=== PATIENT | male | born 1955 | race Caucasian/White ===

== ENCOUNTER 2020-04-08 14:58 | Inpatient (IN) | payer MEDICARE ==
[~2020-04-08] VITALS: Ht 170.2 cm; Wt 95.3 kg
[2020-04-08] MEDS ORDERED: RISP1TAB27 PO (15:16)
[2020-04-08] MEDS ORDERED: HYDR-501 PO (15:16)
[2020-04-08] MEDS ORDERED: INSU100I26 SQ (15:16)
[2020-04-08] MEDS ORDERED: SEMA1PEN SQ (15:16)
[2020-04-08] MEDS ORDERED: TRAZ-182 PO (15:16)
[2020-04-08] MEDS ORDERED: LISI2.5T2 PO (15:16)
[2020-04-08] MEDS ORDERED: GLIP10TA21 PO (15:16)
--- NOTE | 2020-04-08 15:17 | NUR ---
med recon was prepared from pt own med bottles and pt information provided.
[2020-04-08] MEDS ORDERED: MAG HYDROX/AL HYDROX/SIMETH 30 ML LIQUID UDC PO PRN (16:00)
[2020-04-08] MEDS ORDERED: MAGNESIUM HYDROXIDE 30 ML LIQUID UDC PO PRN (16:00)
[2020-04-08] MEDS ORDERED: BLOOD SUGAR DIAGNOSTIC 1 EACH STRIP VI ONE (16:00)
[2020-04-08] MEDS ORDERED: ACETAMINOPHEN 325 MG TABLET PO PRN (16:00)
--- NOTE | 2020-04-08 16:11 | NUR ---
Patient was escorted to MHU by security specialist & ANIVAL Rubin. Patient ate whole sandwich with water with good appetite before leaving ER.
[2020-04-08] MEDS ORDERED: DEXTROSE 50% 50 ML DISP.SYRIN IV PRN (16:15)
[2020-04-08 16:30] VITALS: BP 118/64
[2020-04-08] MEDS: BLOOD SUGAR DIAGNOSTIC 1 EACH STRIP VI SCH ×2 (16:30→20:55)
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
[2020-04-08] MEDS: INSULIN REGULAR, HUMAN 300 UNITS/3 ML VIAL SQ PRN (20:56)
[2020-04-08] MEDS: INSULIN GLARGINE,HUM 300 UNITS/3 ML CARTRIDGE SQ SCH (20:57)
[2020-04-08 21:31] VITALS: BP 121/66
--- NOTE | 2020-04-09 06:04 | NUR ---
Patient slept a total of 7.0 hours.
[2020-04-09] MEDS: BLOOD SUGAR DIAGNOSTIC 1 EACH STRIP VI SCH ×4 (06:35→20:14)
[2020-04-09 07:30] VITALS: BP 109/76
[2020-04-09 07:39] LABS: *BILIRUBIN,URIN NEGATIVE (NEGATIVE); *BLOOD, URINE NEGATIVE (NEGATIVE); *CLARITY,URINE CLEAR (CLEAR); *COLOR,URINE YELLOW (YELLOW); *KETONES,URINE NEGATIVE (NEGATIVE); *UROBILINOGEN,URINE 0.2 E.U./dl (NORMAL); LEUKOCYTE ESTERASE ,URINE NEGATIVE (NEGATIVE); NITRITE, URINE NEGATIVE (NEGATIVE); UGLUCOSE NEGATIVE (NEGATIVE)
[2020-04-09] MEDS: INSULIN GLARGINE,HUM 300 UNITS/3 ML CARTRIDGE SQ SCH ×2 (08:16→20:23)
[2020-04-09] MEDS: INSULIN REGULAR, HUMAN 300 UNIT/3 ML VIAL SQ PRN ×3 (08:18→17:45)
[2020-04-09] MEDS: HALOPERIDOL 1 MG TABLET PO SCH ×3 (08:24→17:35)
[2020-04-09] MEDS: FLUOXETINE HCL 20 MG CAPSULE PO SCH (08:25)
[2020-04-09] MEDS: LISINOPRIL 5 MG TABLET PO SCH (08:30)
[2020-04-09] MEDS: glipiZIDE XL 5 MG TABCR PO SCH (08:31)
[2020-04-09] MEDS ORDERED: GLIPIZIDE 10 MG PO SCH (09:00)
--- NOTE | 2020-04-09 11:42 | NUR ---
BREEZY Initial Discharge Note: Patient is currently homeless and will be needing independent living placement. Patient is agreeable to paying for an Independent Living. Patient does not have any supportive contacts and does not want his siblings to be notified of his hospitalization. BREEZY will continue to work with patient and MD to ensure a safe and proper discharge plan.
--- NOTE | 2020-04-09 11:51 | NUR ---
Social Work Firearms Report (DOJ): Denture Contour Wire Specialist completed and submitted a [employer] firearms report for 5150 danger to self certification. A copy of report has been placed in patient chart.
[2020-04-09 16:00] VITALS: BP 107/86
--- NOTE | 2020-04-09 17:00 | NUR ---
Gps/Process Improvement Manager- Kept asking for food, , something to eat per pt. Reviwed about his Diabetes, claimed he cant help it he's still hungry, might benefit from Diabetic Educ. Patient complaint he had couple of dirrhea today, denies any stomach cramps, instructed if ever have diarrhrea again, not to flush toilet, let staff know .
[2020-04-09] MEDS: LOPERAMIDE HCL 2 MG CAPSULE PO PRN ×2 (17:35→23:32)
[2020-04-09 20:00] VITALS: BP 119/77
--- NOTE | 2020-04-09 20:00 | NUR ---
RECEIVED PATIENT IN THE DAY ROOM WATCHING TV. HE IS NOTED A/O X 3, HE IS ABLE TO VERBALIZED FEELINGS. CALM AND PLEASANT UPON APPROACHED. HE IS NOTED HYPERVERBAL, AND ATTENTION SEEKER. HE DENIES SI/HI/VH/AH. HE IS ABLE TO CFS. V/S STABLE AT THIS TIME. PATIENT IS REASSURED FOR HER SAFETY. SAFETY AND FALL PRECAUTION IN PLACE. WILL CONTINUE TO MONITOR.
[2020-04-09] MEDS: INSULIN REGULAR, HUMAN 300 UNITS/3 ML VIAL SQ PRN (20:22)
[2020-04-09] MEDS ORDERED: TRAZODONE 50 MG TABLET PO SCH (21:00)
[2020-04-09] MEDS: TEMAZEPAM 7.5 MG CAPSULE PO PRN (23:32)
[2020-04-10] MEDS: BLOOD SUGAR DIAGNOSTIC 1 EACH STRIP VI SCH ×4 (06:39→20:29)
[2020-04-10 07:30] VITALS: BP 94/50
[2020-04-10] MEDS: INSULIN GLARGINE,HUM 300 UNITS/3 ML CARTRIDGE SQ SCH ×2 (08:12→20:46)
[2020-04-10] MEDS: glipiZIDE XL 5 MG TABCR PO SCH (08:13)
[2020-04-10] MEDS: HALOPERIDOL 1 MG TABLET PO SCH ×3 (08:14→18:13)
[2020-04-10] MEDS: LISINOPRIL 5 MG TABLET PO SCH (08:14)
[2020-04-10] MEDS: FLUOXETINE HCL 20 MG CAPSULE PO SCH (08:14)
[2020-04-10] MEDS: LOPERAMIDE HCL 2 MG CAPSULE PO PRN (08:25)
--- NOTE | 2020-04-10 11:03 | NUR ---
Gps/Compotype Operator- Attends his group therapy, compliant with his routine medications, continue to review dietary needs and restrictions. Still ask for more foods. Gets needy , redirectable..
--- NOTE | 2020-04-10 11:56 | NUR ---
BREEZY Coordination of Care: Faxed patient's referral packet attention to [facility] to the following facilities for review and possible placement [facility] ([phone]), [facility] ([phone]), [facility] ([phone]), [facility] ([phone]).
[2020-04-10] MEDS: INSULIN REGULAR, HUMAN 300 UNIT/3 ML VIAL SQ PRN (12:27)
[2020-04-10 15:23] VITALS: BP 123/70
[2020-04-10 20:22] VITALS: BP 131/77
[2020-04-11] MEDS: BLOOD SUGAR DIAGNOSTIC 1 EACH STRIP VI SCH ×4 (06:56→20:10)
[2020-04-11 07:30] VITALS: BP 125/75
[2020-04-11] MEDS: FLUOXETINE HCL 20 MG CAPSULE PO SCH (09:02)
[2020-04-11] MEDS: HALOPERIDOL 1 MG TABLET PO SCH ×3 (09:03→17:02)
[2020-04-11] MEDS: INSULIN GLARGINE,HUM 300 UNITS/3 ML CARTRIDGE SQ SCH ×2 (09:11→20:11)
[2020-04-11] MEDS: LISINOPRIL 5 MG TABLET PO SCH (10:37)
[2020-04-11] MEDS: glipiZIDE XL 5 MG TABCR PO SCH (10:38)
[2020-04-11] MEDS: INSULIN REGULAR, HUMAN 300 UNIT/3 ML VIAL SQ PRN (12:48)
--- NOTE | 2020-04-11 13:23 | NUR ---
GPS: PT RECEIVED WALKING B/W NURSING STATION TO TV ROOM. A/OX3 BUT CONFUSE AND ANXIOUS. VERBALLY ABLE TO COMMUNICATE ALL NEEDS. PT FREQUENTLY REQUESTING FOR THINGS, FOOD, DRINKS AND HAD NO PATIENCE WAITING. REDIRECT AND ENCOURAGED TO BREAK WITH FOOD AND DRINKS. PT BLOOD SUGAR WITHIN SLIDING SCALE WITH 2UNIT INSULIN GIVEN AND ROUTINE LANTUS 44 UNITS ADMINISTERED. PT COOPERATIVE WITH MEDS AND CARE. WILL CONTINUE MONITOR AND ENCOURAGE VENTING FEELINGS.
[2020-04-11 16:00] VITALS: BP 109/62
[2020-04-11] MEDS: INSULIN REGULAR, HUMAN 300 UNITS/3 ML VIAL SQ PRN ×2 (17:01→20:12)
[2020-04-11] MEDS: GABAPENTIN 300 MG CAPSULE PO SCH (17:02)
[2020-04-11] MEDS: LORAZEPAM 1 MG TABLET PO PRN (20:45)
[2020-04-11 20:51] VITALS: BP 141/76
[2020-04-11] MEDS: TEMAZEPAM 7.5 MG CAPSULE PO PRN (22:00)
--- NOTE | 2020-04-12 06:14 | NUR ---
Received Pt in the hallway asking for snacks. Pt is A+Ox2 and is child-like and labile in behavior. Pt is easily agitated when he does not get what he wants right away, he yells and becomes verbally abusive toward staff. Pt is focused on snacks and is attention-seeking with staff, redirected as needed. Ativan 1mg administered with moderate effect. Restoril 7.5mg administered one hour later with good effect. Denies SI/HI. HS BS 177, Lantus 44 units and 3 units regular insulin administered per MD order. AM BS 118. Denies pain, VS stable.
[2020-04-12] MEDS: BLOOD SUGAR DIAGNOSTIC 1 EACH STRIP VI SCH ×4 (06:31→20:27)
[2020-04-12 07:30] VITALS: BP 110/54
[2020-04-12] MEDS: glipiZIDE XL 5 MG TABCR PO SCH (08:17)
[2020-04-12] MEDS: LISINOPRIL 5 MG TABLET PO SCH (08:18)
[2020-04-12] MEDS: FLUOXETINE HCL 20 MG CAPSULE PO SCH (08:19)
[2020-04-12] MEDS: GABAPENTIN 300 MG CAPSULE PO SCH ×2 (08:19→18:13)
[2020-04-12] MEDS: HALOPERIDOL 1 MG TABLET PO SCH ×3 (08:19→18:13)
[2020-04-12] MEDS: INSULIN GLARGINE,HUM 300 UNITS/3 ML CARTRIDGE SQ SCH ×2 (09:58→20:23)
[2020-04-12] MEDS: INSULIN REGULAR, HUMAN 300 UNIT/3 ML VIAL SQ PRN (12:12)
[2020-04-12] MEDS: LORAZEPAM 1 MG TABLET PO PRN ×2 (14:49→20:18)
--- NOTE | 2020-04-12 15:51 | NUR ---
GPS: PT A/OX3, AWARE OF SURROUNDING AND PLACEMENT. PT DENIED SI OR INTENT. PT VERY UNSTABLE MENTALLY DUE TO NOT ABLE TO CONTROL EMOTIONS. PT EASILY GET IRRITATED AND OUTBURST OFTEN FOR APPARENTLY SMALL THINGS LIKE ASKING FOR JUICE OR EXTRA MILK AND WHEN NOT GIVEN. PT CONSTANTLY WANTING TO DRINK JUICE OR MILK, MADE AWARE OF HIS DIABETIC DX AND NEED TO MANAGE, BUT HE WILL BECOME GET VERY UPSET AND OUTBURST. PT SEVERALLY HAD OUTBURST AND MOST TIMES NOT ABLE TO DEESCALATE SITUATION APPROPRIATELY AND WILL START VERBALLY INSULTING STAFFS. REDIRECTION WAS NOT EFFECTIVE, SECURITY WAS CALLED PT WAS NOT ABLE TO CALM. PT PRN ATIVAN WAS ADMINISTRED ORDER
--- NOTE | 2020-04-12 16:05 | NUR ---
MONITORING PT S/P ATIVAN, SOME EFFECT NOTED AT THIS TIME.
[2020-04-12] MEDS: INSULIN REGULAR, HUMAN 300 UNITS/3 ML VIAL SQ PRN (20:24)
[2020-04-12 20:29] VITALS: BP 117/71
[2020-04-12] MEDS: TEMAZEPAM 7.5 MG CAPSULE PO PRN (22:18)
[2020-04-13] MEDS: BLOOD SUGAR DIAGNOSTIC 1 EACH STRIP VI SCH ×4 (06:39→20:37)
[2020-04-13 07:30] VITALS: BP 106/43
[2020-04-13] MEDS: GABAPENTIN 300 MG CAPSULE PO SCH ×2 (08:21→17:04)
[2020-04-13] MEDS: HALOPERIDOL 1 MG TABLET PO SCH ×3 (08:21→17:03)
[2020-04-13] MEDS: FLUOXETINE HCL 20 MG CAPSULE PO SCH (08:22)
[2020-04-13] MEDS: glipiZIDE XL 5 MG TABCR PO SCH (08:22)
[2020-04-13] MEDS: INSULIN GLARGINE,HUM 300 UNITS/3 ML CARTRIDGE SQ SCH ×2 (08:24→20:31)
[2020-04-13] MEDS: LISINOPRIL 5 MG TABLET PO SCH (08:33)
[2020-04-13 16:00] VITALS: BP 128/79
--- NOTE | 2020-04-13 16:56 | NUR ---
BREEZY Family Contact: BREEZY spoke with patient's sister, Caryn ([phone]) regarding patient's treatment plan and discharge planning. Caryn is agreeable with a penitentiary for the patient upon discharge.
[2020-04-13] MEDS: INSULIN REGULAR, HUMAN 300 UNIT/3 ML VIAL SQ PRN (17:06)
--- NOTE | 2020-04-13 17:46 | NUR ---
Received patient this am, pacing up and down the arauz. This patient has had multiple request today and gets very anxious if staff does not serve him right away. Patient is on and off compliant with medication and totally NON COMPLIANT when it comes to following a diabetic diet. Despite teaching and encouraging patient, reinforcement is needed. Patient needs firm boundaries and limit setting. , aware of this behavior and has added a new medication. Continuing to monitor for safety and behavior escalations.
[2020-04-13] MEDS: DIVALPROEX 250 MG TABLET.DR PO SCH (20:23)
[2020-04-13] MEDS: INSULIN REGULAR, HUMAN 300 UNITS/3 ML VIAL SQ PRN (20:33)
[2020-04-13 21:12] VITALS: BP 136/65
[2020-04-13] MEDS: LORAZEPAM 1 MG TABLET PO PRN (21:34)
[2020-04-13] MEDS: TEMAZEPAM 7.5 MG CAPSULE PO PRN (22:37)
--- NOTE | 2020-04-14 06:06 | NUR ---
PT SLEPT 5 HOURS. PT IN NO ACUTE DISTRESS. PRESCRIBED MEDICATION GIVEN AND PT TOLERATED IT WELL. PT GIVEN ATIVAN AT 2134H FOR ANXIETY. PT TOLERATED IT WELL. PT GIVEN RESTORIL AT 2237H PER PT REQUEST. PT TOLERATED IT WELL. SAFETY AND COMFORT PROVIDED. ALL NEEDS ARE MET. WILL ENDORSE TO INCOMING NURSE FOR CONTINUITY OF CARE.
[2020-04-14] MEDS: BLOOD SUGAR DIAGNOSTIC 1 EACH STRIP VI SCH ×4 (06:32→20:46)
[2020-04-14 07:30] VITALS: BP 118/82
[2020-04-14] MEDS: DIVALPROEX 250 MG TABLET.DR PO SCH ×2 (08:22→20:45)
[2020-04-14] MEDS: LISINOPRIL 5 MG TABLET PO SCH (08:23)
[2020-04-14] MEDS: HALOPERIDOL 1 MG TABLET PO SCH ×3 (08:23→16:52)
[2020-04-14] MEDS: glipiZIDE XL 5 MG TABCR PO SCH (08:23)
[2020-04-14] MEDS: GABAPENTIN 300 MG CAPSULE PO SCH ×2 (08:23→16:52)
[2020-04-14] MEDS: FLUOXETINE HCL 20 MG CAPSULE PO SCH (08:23)
[2020-04-14] MEDS: INSULIN GLARGINE,HUM 300 UNITS/3 ML CARTRIDGE SQ SCH ×2 (08:25→20:54)
[2020-04-14] MEDS: INSULIN REGULAR, HUMAN 300 UNIT/3 ML VIAL SQ PRN ×2 (11:51→16:53)
--- NOTE | 2020-04-14 14:44 | NUR ---
Document Specialist Individual Therapy: casino worker met with pt for brief counseling to address patient's suicidal ideation. SW assessed patient level of suicidality and patient currently denies suicidal ideation. Patient presents with more euthymic mood and congruent affect. Patient is able to have a meaningful conversation with this residential mortgage underwriter and shares his gratitude for helping him. SW provided supportive counseling and positive reinforcement. Patient has been joining group activities. Patient is looking forward to his future and where he will go. Patient shared that he is happy to have his sister, Caryn supporting him and checking up on him. SW encouraged patient to continue to express his feelings and encouraged peer interaction.
[2020-04-14 16:00] VITALS: BP 100/53
--- NOTE | 2020-04-14 18:14 | NUR ---
Received patient this am, standing at the nurses station, asking for food. This behavior of being needy and demanding continued all day long. Constant requests for food and drink, despite education given about diabetes and nutrition. Flange Machine Operator set limits and boundaries which was met with pushback from patient. Anxiety noted to be elevated when any denial of an item was spoke of. Patient noted to be intrusive with staff and up in everyone's business requiring frequent redirection. Continuing to monitor for behavior escalation and safety.
[2020-04-14] MEDS: LORAZEPAM 1 MG TABLET PO PRN (19:47)
[2020-04-14 20:05] VITALS: BP 111/74
[2020-04-14] MEDS: INSULIN REGULAR, HUMAN 300 UNITS/3 ML VIAL SQ PRN (20:52)
[2020-04-14] MEDS: TEMAZEPAM 7.5 MG CAPSULE PO PRN (22:59)
--- NOTE | 2020-04-15 06:33 | NUR ---
Pt awoke mccarthy and irritable. Pt requested a shower this morning, which was declined due to he took a shower 6 hours previously on the same shift. Pt became very upset and refused AM Accu-check. Pt educated regarding health risks of refusing to have his blood sugar checked, Pt still refused.
[2020-04-15] MEDS: BLOOD SUGAR DIAGNOSTIC 1 EACH STRIP VI SCH ×4 (06:54→20:17)
[2020-04-15 07:30] VITALS: BP 117/73
[2020-04-15] MEDS: DIVALPROEX 250 MG TABLET.DR PO SCH ×2 (08:23→20:15)
[2020-04-15] MEDS: LISINOPRIL 5 MG TABLET PO SCH (08:23)
[2020-04-15] MEDS: HALOPERIDOL 1 MG TABLET PO SCH ×3 (08:23→17:05)
[2020-04-15] MEDS: GABAPENTIN 300 MG CAPSULE PO SCH ×2 (08:23→17:05)
[2020-04-15] MEDS: glipiZIDE XL 5 MG TABCR PO SCH (08:24)
[2020-04-15] MEDS: INSULIN GLARGINE,HUM 300 UNITS/3 ML CARTRIDGE SQ SCH ×2 (08:40→20:44)
[2020-04-15] MEDS: FLUOXETINE HCL 20 MG CAPSULE PO SCH (08:42)
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
[2020-04-15 16:06] VITALS: BP 112/70
[2020-04-15 20:08] VITALS: BP 124/72
[2020-04-15] MEDS: TEMAZEPAM 7.5 MG CAPSULE PO PRN (21:30)
[2020-04-15] MEDS: LORAZEPAM 1 MG TABLET PO PRN (23:42)
--- NOTE | 2020-04-16 01:20 | NUR ---
Received Pt in the hallway asking for a snacks. Patient is alert/oriented x2 and is child-like. Patient is is easily agitated and irritable when he does not get what he wants right away, he yells and becomes verbally abusive toward staff. Patient is attention-seeking, redirected as needed. Patient is complaint with medication/care/diet. Safe environment provided, frequent rounding, and clutter free environment. Bed in lowest position, bed locked, and bed alarm on while in bed.
[2020-04-16] MEDS: BLOOD SUGAR DIAGNOSTIC 1 EACH STRIP VI SCH ×4 (06:49→20:02)
[2020-04-16 07:30] VITALS: BP 110/64
[2020-04-16] MEDS: GABAPENTIN 300 MG CAPSULE PO SCH ×2 (09:17→16:52)
[2020-04-16] MEDS: glipiZIDE XL 5 MG TABCR PO SCH (09:17)
[2020-04-16] MEDS: DIVALPROEX 250 MG TABLET.DR PO SCH ×2 (09:18→20:02)
[2020-04-16] MEDS: HALOPERIDOL 1 MG TABLET PO SCH ×3 (09:18→16:52)
[2020-04-16] MEDS: FLUOXETINE HCL 20 MG CAPSULE PO SCH (09:18)
[2020-04-16] MEDS: LISINOPRIL 5 MG TABLET PO SCH (09:18)
[2020-04-16] MEDS: INSULIN GLARGINE,HUM 300 UNITS/3 ML CARTRIDGE SQ SCH ×2 (09:27→20:06)
[2020-04-16] MEDS: INSULIN REGULAR, HUMAN 300 UNIT/3 ML VIAL SQ PRN ×2 (12:03→16:52)
[2020-04-16 16:00] VITALS: BP 98/57
[2020-04-16 20:00] VITALS: BP 126/73
[2020-04-16] MEDS: LORAZEPAM 1 MG TABLET PO PRN (20:02)
[2020-04-16] MEDS: INSULIN REGULAR, HUMAN 300 UNITS/3 ML VIAL SQ PRN (20:13)
[2020-04-16] MEDS: TEMAZEPAM 7.5 MG CAPSULE PO PRN (21:07)
[2020-04-17] MEDS: BLOOD SUGAR DIAGNOSTIC 1 EACH STRIP VI SCH ×2 (06:32→12:02)
[2020-04-17 07:30] VITALS: BP 147/87
--- NOTE | 2020-04-17 08:24 | NUR ---
SW Discharge Note: Patient will be discharged to longterm facility [facility] [place] [address] ([phone]) via Ambulance transportation at 1:00pm today. Deburring Technician spoke with HARREIT, Supervisor Looping ([phone]) at facility and he confirmed that patient has been accepted at their facility today. Patients sisterCaryn ([phone]) is aware and agreeable with discharge plans. Patient is alert and oriented x4. Patient is not able to plan for self-care at this time but is willing to accept care provided at the facility. Patient denies suicidal or homicidal ideation. Patient is aware and agreeable with discharge plans. Patient presents with euthymic mood and congruent affect. Patient will continue to follow-up with Psychiatrist Dr. Bundy and Customer Training Specialist Dr. Reddy at [facility]. Patient signed the homeless waiver upon discharge and a copy was placed in the chart. Homeless resources were provided and include [address] information line for shelters and homeless resources. A copy of all resources given to patient was also placed in the chart.
[2020-04-17 08:44] VITALS: BP 147/87
[2020-04-17] MEDS: LISINOPRIL 5 MG TABLET PO SCH (08:44)
[2020-04-17] MEDS: DIVALPROEX 250 MG TABLET.DR PO SCH (08:44)
[2020-04-17] MEDS: glipiZIDE XL 5 MG TABCR PO SCH (08:44)
[2020-04-17] MEDS: FLUOXETINE HCL 20 MG CAPSULE PO SCH (08:44)
[2020-04-17] MEDS: GABAPENTIN 300 MG CAPSULE PO SCH (08:45)
[2020-04-17] MEDS: HALOPERIDOL 1 MG TABLET PO SCH ×2 (08:45→12:18)
[2020-04-17] MEDS: INSULIN GLARGINE,HUM 300 UNITS/3 ML CARTRIDGE SQ SCH (08:47)
[2020-04-17] MEDS: INSULIN REGULAR, HUMAN 300 UNIT/3 ML VIAL SQ PRN (12:24)
--- NOTE | 2020-04-17 13:30 | NUR ---
Gps/Satellite Tv Installer-Called [facility], report was given to Marilyn Rosario . All belongings was given back to patient..In good spirit, no complaints noted. Ambulance was arranged for [address]30 pickle water pump operator .
--- NOTE | 2020-04-17 14:05 | NUR ---
Gps/Body Line Finisher- Discharged to [facility] via ambulance in good spirit no complaints noted.
== END 2020-04-17 11:40 | DRG 885 ==
LOC: ER 14:58 → GPS 15:32
PROVIDERS: ADMIT Psychiatry & Neurology Psychiatry; ATTEND Registered Nurse
DX: F25.9 Schizoaffective disorder, unspecified (principal); E11.65 Type 2 diabetes mellitus with hyperglycemia; R45.851 Suicidal ideations; E66.01 Morbid (severe) obesity due to excess calories; Z68.35 Body mass index [BMI] 35.0-35.9, adult; Z59.0 Homelessness; F41.9 Anxiety disorder, unspecified; I10 Essential (primary) hypertension; Z68.32 Body mass index [BMI] 32.0-32.9, adult; F12.90 Cannabis use, unspecified, uncomplicated; Z91.5 Personal history of self-harm; Z79.4 Long term (current) use of insulin
CPT/HCPCS: 36415; 84443; A4663; J1815; J3490; J8499